=== PATIENT | female | born 1985 | race Caucasian/White ===

== ENCOUNTER 2021-01-06 00:11 | Emergency (ER) | payer OTHER ==
[~2021-01-06] VITALS: Ht 160 cm; Wt 127.2 kg
[2021-01-06] MEDS ORDERED: morphine INJ 10 MG/ML 1ML (SYR OR VIAL) IVP STA ×2 (00:23→01:52)
[2021-01-06 00:29] LABS: COLOR,URINE YELLOW
[2021-01-06 00:30] LABS: BACTERIA,URINE FEW /HPF; BILIRUBIN,URINE NEGATIVE (NEGATIVE); CLARITY,URINE SLIGHTLY CLOUDY; GLUCOSE, URINE (UA) NEGATIVE (NEGATIVE); KETONES,URINE NEGATIVE (NEGATIVE); LEUKOCYTE ESTERASE ,URINE NEGATIVE (NEGATIVE); NITRITE,URINE NEGATIVE (NEGATIVE); PROTEIN,URINE NEGATIVE (NEGATIVE); RBC,URINE 50-100 /HPF; SQUAMOUS EPITHELIAL CELL,UR >50 /HPF
[2021-01-06] MEDS ORDERED: ONDANSETRON 4 MG/2 ML (SDV) Z0FRAN IVP ONE (00:30)
[2021-01-06] MEDS ORDERED: KETOROLAC 30 MG/ML VIAL IVP ONE (00:30)
[2021-01-06 00:34] LABS: BASOPHILS % (AUTO) 0 % (0-10); EOSINOPHILS % (AUTO) 1 % (0-10); HEMATOCRIT 40 % (35-52); HEMOGLOBIN 13.8 G/DL (11.5-16.0); LYMPHOCYTES % (AUTO) 23 % (12-44); MEAN CORPUSCULAR HEMOGLOBIN 30 PG (25-34); MEAN CORPUSCULAR HGB CONC 35 G/DL (32-36); MEAN CORPUSCULAR VOLUME 88 FL (80-99); MEAN PLATELET VOLUME 11.4 FL (7.4-10.4); MONOCYTES % (AUTO) 8 % (0-12); NEUTROPHILS # (AUTO) 8.1 X 10^3 (1.8-7.8); NEUTROPHILS % (AUTO) 68 % (42-75); PLATELET COUNT 266 10^3/uL (130-400)
[2021-01-06 00:35] LABS: EOSINOPHILS # (AUTO) 0.1 10^3/uL (0.0-0.3); LYMPHOCYTES # (AUTO) 2.8 X 10^3 (1.0-4.0); MONOCYTES # (AUTO) 0.9 X 10^3 (0.0-1.0)
[2021-01-06 00:53] LABS: ALANINE AMINOTRANSFERASE 15 U/L (0-55); ALBUMIN 3.9 GM/DL (3.2-4.5); ALKALINE PHOSPHATASE 123 U/L (40-136); BILIRUBIN,TOTAL < 0.2 MG/DL (0.1-1.0); BUN/CREATININE RATIO 18; CALCIUM 8.8 MG/DL (8.5-10.1); CARBON DIOXIDE 24 MMOL/L (21-32); CHLORIDE 104 MMOL/L (98-107); CREATININE SERUM 0.87 MG/DL (0.60-1.30); GFR ESTIMATED > 60; GLUCOSE 120 MG/DL (70-105); POTASSIUM 4.1 MMOL/L (3.6-5.0); SODIUM 138 MMOL/L (135-145); TOTAL PROTEIN 7.2 GM/DL (6.4-8.2)
--- NOTE | 2021-01-06 01:59 | ED Abdominal Pain ---
General Chief Complaint: Abdominal/GI Problems Stated Complaint: ABDOMINAL PAIN Nursing Triage Note: PT AMBULATE TO ROOM FS02 WITH C/O RIGHT SIDE ABD AND FLANK PAIN STARTING LAST NIGHT. Sepsis Screen: No Definite Risk Source of Information: Patient Exam Limitations: No Limitations History of Present Illness Date Seen by Provider: January 06, 2021 Time Seen by Provider: 00:15 Initial Comments Patient is a 35-year-old female presents with right flank pain radiating to right groin. Symptoms began 2 hours prior to arrival. Pain is described as pre ssure-like and is rated mild to severe. Pain is currently moderate to severe. It waxes and wanes and has not improved with position change to rest. It is not made worse by palpation. Is associated with nausea and one episode of vomiting. No constipation or diarrhea. No urinary frequency urgency burning or hematuria. No history of kidney stones. Last menstrual period was 2 days ago. No other acute symptoms or complaints. Timing/Duration: Getting Worse Location: Other Radiation: Other Activities at Onset: Other Modifying Factors: Improves With Other Associated Symptoms: Other Allergies and Home Medications Allergies Coded Allergies: No Known Allergies (Verified Allergy, Unknown, 01/06/21) Patient Home Medication List Home Medication List Reviewed: Yes Review of Systems Review of Systems Constitutional: see HPI EENTM: See HPI Respiratory: See HPI Cardiovascular: See HPI Gastrointestinal: See HPI Genitourinary: See HPI Musculoskeletal: see HPI Skin: see HPI Psychiatric/Neurological: See HPI Hematologic/Lymphatic: See HPI All Other Systems Reviewed Negative Unless Noted: Yes Past Zhskcen-Qdkvgi-Vomohe Hx Past Med/Social Hx: Reviewed Nursing Past Med/Soc Hx Patient Social History Alcohol Use: Denies Use Smoking Status: Never a Smoker 2nd Hand Smoke Exposure: No Recent Infectious Disease Expo: No Recent Hopitalizations: No Seasonal Allergies Seasonal Allergies: Yes Past Medical History Surgeries: Yes Tubal Ligation Respiratory: No Cardiac: No Neurological: No Genitourinary: No Gastrointestinal: No Musculoskeletal: Yes Fractures Endocrine: No HEENT: No Cancer: No Psychosocial: No Integumentary: No Blood Disorders: No Physical Exam Vital Signs Vital Signs - First Documented 01/06/21 00:21 Temp 36.2 Pulse 78 Resp 18 B/P (MAP) 176/93 (120) O2 Delivery Room Air Capillary Refill : Less Than 3 Seconds Height/Weight/BMI Height: '" Weight: lbs. oz. kg; 49.00 BMI Method: General Appearance: moderate distress HEENT: PERRL/EOMI Neck: non-tender, full range of motion Respiratory: lungs clear Cardiovascular: regular rate, rhythm Gastrointestinal: non tender, soft Extremities: normal range of motion, no pedal edema Back: normal inspection, no CVA tenderness Skin: normal color Lymphatic: no adenopathy Focused Exam Sepsis Stage: Ruled Out Progress/Results/Core Measures Results/Orders Lab Results Laboratory Tests Test 01/06/21 00:15 01/06/21 00:25 Range/Units Urine Color YELLOW Urine Clarity SLIGHTLY CLOUDY Urine pH 6.0 5-9 Urine Specific [place] >=1.030 1.016-1.022 Urine Protein NEGATIVE NEGATIVE Urine Glucose (UA) NEGATIVE NEGATIVE Urine Ketones NEGATIVE NEGATIVE Urine Nitrite NEGATIVE NEGATIVE Urine Bilirubin NEGATIVE NEGATIVE Urine Urobilinogen 0.2 < = 1.0 MG/DL Urine Leukocyte Esterase NEGATIVE NEGATIVE Urine RBC (Auto) 2+ H NEGATIVE Urine RBC 50-100 H /HPF Urine WBC 2-5 /HPF Urine Squamous Epithelial Cells >50 H /HPF Urine Crystals NONE /LPF Urine Bacteria FEW H /HPF Urine Casts NONE /LPF Urine Mucus MODERATE H /LPF Urine Culture Indicated NO Urine Test NEGATIVE NEGATIVE White Blood Count 12.0 H 4.3-11.0 10^3/uL Red Blood Count 4.53 4.35-5.85 10^6/uL Hemoglobin 13.8 11.5-16.0 G/DL Hematocrit 40 35-52 % Mean Corpuscular Volume 88 80-99 FL Mean Corpuscular Hemoglobin 30 25-34 PG Mean Corpuscular Hemoglobin Concent 35 32-36 G/DL Red Cell Distribution Width 12.0 10.0-14.5 % Platelet Count 266 130-400 10^3/uL Mean Platelet Volume 11.4 H 7.4-10.4 FL Immature Granulocyte % (Auto) 0 % Neutrophils (%) (Auto) 68 42-75 % Lymphocytes (%) (Auto) 23 12-44 % Monocytes (%) (Auto) 8 0-12 % Eosinophils (%) (Auto) 1 0-10 % Basophils (%) (Auto) 0 0-10 % Neutrophils # (Auto) 8.1 H 1.8-7.8 X 10^3 Lymphocytes # (Auto) 2.8 1.0-4.0 X 10^3 Monocytes # (Auto) 0.9 0.0-1.0 X 10^3 Eosinophils # (Auto) 0.1 0.0-0.3 10^3/uL Basophils # (Auto) 0.0 0.0-0.1 10^3/uL Immature Granulocyte # (Auto) 0.0 0.0-0.1 10^3/uL Sodium Level 138 135-145 MMOL/L Potassium Level 4.1 3.6-5.0 MMOL/L Chloride Level 104 98-107 MMOL/L Carbon Dioxide Level 24 21-32 MMOL/L Anion Gap 10 5-14 MMOL/L Blood Urea Nitrogen 16 7-18 MG/DL Creatinine 0.87 0.60-1.30 MG/DL Estimat Glomerular Filtration Rate > 60 BUN/Creatinine Ratio 18 Glucose Level 120 H 70-105 MG/DL Calcium Level 8.8 8.5-10.1 MG/DL Corrected Calcium 8.9 8.5-10.1 MG/DL Total Bilirubin < 0.2 0.1-1.0 MG/DL Aspartate Amino Transf (AST/SGOT) 15 5-34 U/L Alanine Aminotransferase (ALT/SGPT) 15 0-55 U/L Alkaline Phosphatase 123 40-136 U/L Total Protein 7.2 6.4-8.2 GM/DL Albumin 3.9 3.2-4.5 GM/DL My Orders Orders - JOHN GOMEZ DO Ua Culture If Indicated (01/06/21 00:19) Hcg,Qualitative Urine (01/06/21 00:19) Cbc With Automated Diff (01/06/21 00:23) Comprehensive Metabolic Panel (01/06/21 00:23) Ct Abd/Pelvis Wo(Kidney Stone) (01/06/21 00:23) Ondansetron Injection (Zofran Injectio (01/06/21 00:30) Morphine Injection (Morphine Injection (01/06/21 00:23) Ketorolac Injection (Toradol Injection) (01/06/21 00:30) Ed Iv/Invasive Line Start (01/06/21 00:34) Morphine Injection (Morphine Injection (01/06/21 01:52) Medications Given in ED Current Medications Medications Dose Ordered Sig/Osmany Route Start Time Stop Time Status Last Admin Dose Admin Ketorolac Tromethamine 30 mg ONCE ONCE IVP 01/06/21 00:30 01/06/21 00:31 DC 01/06/21 00:35 30 MG Ondansetron HCl 4 mg ONCE ONCE IVP 01/06/21 00:30 01/06/21 00:31 DC 01/06/21 00:35 4 MG Vital Signs/I&O 01/06/21 00:21 Temp 36.2 Pulse 78 Resp 18 B/P (MAP) 176/93 (120) O2 Delivery Room Air Blood Pressure Mean: 120 Departure Communication (Admissions) CT abdomen pelvis: Obstructing distal 4 flat 5 mm kidney stone with mild hydronephrosis. Patient with obstructing kidney stone without urinary tract infection. Symptoms significantly improved with treatment. Will treat supportively with urology follow-up. Return precautions reviewed. Patient verbalizes understanding agreement discharge instructions prior to departure. Impression Primary Impression: Acute right flank pain Additional Impression: Ureteral stone with hydronephrosis Disposition: HOME, SELF-CARE Condition: Stable Departure-Patient Inst. Decision time for Depature: 01:57 Referrals: NO,LOCAL PHYSICIAN (PCP) Primary Care Physician Patient Instructions: Kidney Stones in Adults Add. Discharge Instructions: Please increase fluids and strain urine for passage of kidney stone. Take newly prescribed medications as directed. Follow-up with urologist for reevaluation in 3 to 5 days if symptoms continue. Return to the ED if new or worsening sym ptoms. All discharge instructions reviewed with patient and/or family. Voiced understanding. Scripts Ondansetron (Ondansetron Odt) 4 Mg Tab.rapdis 4 MG PO Q4H, #10 TAB Prov: JOHN GOMEZ DO 01/06/21 Tamsulosin HCl (Flomax) 0.4 Mg Cap 0.4 MG PO DAILY, #5 CAP Prov: JOHN GOMEZ DO 01/06/21 Oxycodone HCl/Acetaminophen (Oxycodone-Acetaminophen 5-325) 1 Each Tablet 1 EACH PO Q4H PRN for PAIN-SEVERE MDD 6, #10 TAB Prov: JONH GOMEZ DO 01/06/21 JOHN GOMEZ DO January 06, 2021 01:59
[2021-01-06] MEDS ORDERED: OXYC1TAB11 PO (02:00)
[2021-01-06] MEDS ORDERED: TMSL.4C PO (02:00)
[2021-01-06] MEDS ORDERED: ONDA4TAB11 PO (02:00)
[2021-01-06] MEDS ORDERED: RX-ONDANSETRON 4 MG ODT (ZOFRAN) PPK #4 PO STA (02:02)
[2021-01-06 02:14] VITALS: BP 143/81
[2021-01-06] MEDS ORDERED: RX-OXYCODONE/APAP 5-325 MG #4 TAB PK PO PRN (02:15)
--- NOTE | 2021-01-06 05:51 | Diagnostic Imaging Report ---
PROCEDURE: CT urinary tract, rule out kidney stone. TECHNIQUE: Multiple contiguous axial images were obtained through the abdomen and pelvis without the use of intravenous contrast. Auto Exposure Controls were utilized during the CT exam to meet ALARA standards for radiation dose reduction. INDICATION: Abdominal pain. COMPARISON: None. FINDINGS: The heart is unremarkable. The lung bases are clear. A 0.5 cm calculus is seen in the distal right ureter, mild to moderate right-sided hydroureteronephrosis. Medullary calcifications are seen bilaterally. Punctate nonobstructing calculi are seen in the right kidney measuring up to 0.2 cm. The urinary bladder is decompressed. There is hepatomegaly. No focal hepatic lesions are identified. The gallbladder is decompressed. No intra or extrahepatic biliary dilation. The spleen, pancreas, and adrenal glands have a normal appearance. There is no pathologically enlarged mesenteric or retroperitoneal adenopathy. The bowel loops are nondilated. The appendix is visualized in the right lower quadrant and has a normal appearance. There is no free fluid or free air. No acute osseous abnormalities. Chronic appearing compression deformity is seen at the T12 vertebral body. There is no free air, loculated collection, or adenopathy in the pelvis. IMPRESSION: 1. Obstructing urolithiasis in the distal right ureter measuring 0.5 cm with mild to moderate hydroureteronephrosis. 2. Medullary calcifications bilaterally, which may be seen with medullary sponge kidney. 3. Hepatomegaly. 4. Chronic appearing compression deformity at the T12 vertebral body. Agree with overnight report. Dictated by: Dictated on workstation # [id number]
== END 2021-01-06 02:14 | disposition home or self-care (01) ==
LOC: ER FS 00:15
DX: N13.2 Hydronephrosis with renal and ureteral calculous obstruction (principal)
CPT/HCPCS: 36415; 74176; 80053; 81000; 84703; 85025